=== PATIENT | female | born 1970 | race American Indian/Alaskan Native ===

== ENCOUNTER 2016-09-21 18:25 | Outpatient (CLI) | payer BC ==
[2016-09-21 19:05] LABS: Blood Urea Nitrogen 13 mg/dL (7-17)
--- NOTE | 2016-09-22 10:38 | Magnetic Resonance Report ---
MRI PELVIS WITH AND WITHOUT CONTRAST INDICATION: Leiomyoma of the uterus. COMPARISON: 03/03/2016 FINDINGS: Multiplanar and multisequence MRI of the pelvis performed following 12 mL Multihance intravenously again demonstrates a myomatous uterus, though slightly smaller since the prior exam, elongated to approximately 16.5 cm in length with its fundus now at the umbilicus. Uterus estimated at 8 cm AP x 9.1 cm transverse. Two dominant uterine fundal fibroids again noted, partly heterogeneous and now not as avidly enhancing. Posterior fundal fibroid positioned more cephalad is now approximately 5.8 x 6.6 x 6.8 cm. The other anterior fundal fibroid positioned more inferiorly of the 2 and again effacing the urinary bladder lumen is now approximately 5.8 x 7 x 5.5 cm. Endometrial canal containing usual small amount of fluid again noted interposed between these 2 dominant fibroids. A third right posterior-lateral fibroid inferiorly is also smaller, now approximately 0.5 cm, axial image 16, series 8. Anterior abdominal wall healed midline incision possible. Few small nabothian cysts again noted without significant pelvic free fluid. Left adnexa/ovary may be again be low lying and demonstrate an approximately 2 cm follicular cyst on axial series 4, image 18. Right adnexa/ovary appears unremarkable as on axial image 25 with few small follicular cysts. Normal imaged bowel, bladder and muscle signal. Normal imaged lower lumbar spine. CONCLUSION: 1. Enlarged myomatous uterus with dominant fundal fibroids again noted, though with overall slight smaller uterine and fibroid size and also less avid fibroid enhancement, as detailed above. 2. Few other findings, as above. Thank you for the opportunity to participate in this patient's care.
== END 2016-09-21 18:26 | disposition home or self-care (01) ==
LOC: MRI 18:25
PROVIDERS: ATTEND Radiology Diagnostic Radiology
DX: D25.9 Leiomyoma of uterus, unspecified (principal); N83.202 Unspecified ovarian cyst, left side; N83.01 Follicular cyst of right ovary; N88.8 Other specified noninflammatory disorders of cervix uteri
CPT/HCPCS: 36415; 72197; 82565; 84520; A9577